=== PATIENT | male | born 1990 | race Caucasian/White ===

== ENCOUNTER 2020-06-01 17:55 | Emergency (ER) | payer OTHER, SELFPAY ==
--- NOTE | 2020-06-01 18:02 | ED.URI ---
HPI - URI/Sore Throat General Chief Complaint: Upper Respiratory Infection Stated Complaint: sore throat Time Seen by Provider: 06/01/20 18:02 Source: patient and RN notes reviewed History of Present Illness HPI Narrative: Patient is a 30-year-old male who presents the urgent care with complaints of a sore throat that started this morning. Patient states that he is already started to feel better this afternoon and rates his pain a 1 out of 10. Patient denies any other upper respiratory symptoms. Denies fever, cough, nausea, vomiting, body aches. Patient has not taken anything [id number] for his symptoms. No other acute complaints. No acute distress noted. Patient read the plan of care. Related Data Home Medications Medication Instructions Recorded Confirmed No Home Medications 06/01/20 06/01/20 Allergies Allergy/AdvReac Type Severity Reaction Status Date / Time No Known Allergies Allergy Mild Verified 06/01/20 18:11 Review of Systems Review of Systems: Narrative: CONSTITUTIONAL: Denies fever, chills, or sweats. EYES: Denies visual changes, redness, or discharge. ENT: Reports of sore throat CARDIOVASCULAR: Denies chest pain, palpitations, or edema. RESPIRATORY: Denies cough or dyspnea. GASTROINTESTINAL: Denies abdominal pain, nausea, vomiting, or diarrhea. GENITOURINARY: Denies dysuria or hematuria. SKIN: Denies rash or itching. MUSCULOSKELETAL: Denies back pain, joint pain, or myalgia. NEUROLOGIC: Denies headache, numbness, or weakness. All other systems reviewed are negative, except as documented in HPI. PMFSH Comments At the time of my signature, I reviewed and agree with the nursing past medical, surgical, social, and family history. There is no relevant family history pertinent to the patient complaint. Exam Narrative: Exam Narrative: GENERAL: This is a well-nourished, well-developed patient, in no apparent distress. HEAD: normocephalic, atraumatic. EYES: PERRL. Sclera clear/white. Vision is grossly intact. EARS: External ears normal, auditory canals clear and without drainage, TMs normal without perforation. Hearing grossly intact. NOSE: External nose normal with no obvious nasal discharge, nares without redness, no rhinorrhea. THROAT: Mucous membranes moist, posterior pharynx clear. Mild postnasal drainage NECK: Neck supple CARDIOVASCULAR: Regular rate and rhythm without murmurs, gallops, or rubs. RESPIRATORY: Clear to auscultation. Breath sounds equal bilaterally. No wheezes, rales, or rhonchi. SKIN: warm, intact with no suspicious lesions or rash, good texture and turgor. NEURO: awake, alert, and oriented to person, place and time. There were no obvious focal neurologic abnormalities. EXTREMITIES: No clubbing, cyanosis, or edema. N Course Vital Signs Vital signs: Vital Signs Temperature 97.9 F 06/01/20 18:04 Pulse Rate 66 06/01/20 18:04 Respiratory Rate 14 06/01/20 18:04 Blood Pressure 127/77 06/01/20 18:04 Pulse Oximetry 100 06/01/20 18:04 Temperature 97.9 F 06/01/20 18:04 Pulse Rate 66 06/01/20 18:04 Respiratory Rate 14 06/01/20 18:04 Blood Pressure 127/77 06/01/20 18:04 Pulse Oximetry 100 06/01/20 18:04 Reviewed MDM - URI/Sore Throat MDM Narrative Medical decision making narrative: Reviewed lab results with the patient. He is aware that strep swab was negative. Educated patient on culture we will call within 72 hours if culture is positive and antibiotics are necessary. Advised the patient to use throat spray and Flonase nasal spray for symptom relief. May use Tylenol/ibuprofen as needed. If symptoms persist or you develop a fever, cough, body aches, nausea, vomiting?follow-up with your provider for possible rule out for coronavirus. Follow-up with your PCP within 2 to 5 days or for worsening symptoms or failure to improve. Differential Diagnosis Differential diagnosis: Likely upper respiratory infection, otitis media, sinusitis, viral infection, br
[2020-06-01 18:04] VITALS: BP 127/77; PULSE 66; RESP 14; TEMP 36.6; O2SAT 100
== END 2020-06-01 18:28 | disposition home or self-care (01) ==
PROVIDERS: Emergency Provider Nurse Practitioner Family
DX: J02.9 Acute pharyngitis, unspecified (principal)
CPT/HCPCS: 87081; 87880; 99203; G0463

== ENCOUNTER 2022-02-17 18:19 | Emergency (ER) | payer OTHER, SELFPAY ==
[2022-02-17 18:25] VITALS: BP 148/64; PULSE 77; RESP 20; TEMP 36.9; O2SAT 100
--- NOTE | 2022-02-17 19:24 | ED.WOUNDLAC ---
HPI - Wound/Laceration General Chief Complaint: Wound/Laceration Stated Complaint: lac on forehead Time Seen by Provider: 02/17/22 19:13 Source: patient and RN notes reviewed Mode of arrival: ambulatory Limitations: no limitations History of Present Illness HPI narrative: Patient presents today with a laceration to his forehead that was sustained 3 days ago when he was hit in the forehead with a drill. He applied some butterfly bandages and some glue at that time to close his wound. States he produces a lot of oil in his forehead and has been sweating and the glue and butterfly bandages have fallen off. He has replaced the butterfly bandage, but has come into urgent care today requesting that sutures to be placed to repair the laceration. You up-to-date on his tetanus vaccine. Related Data Home Medications Medication Instructions Recorded Confirmed No Home Medications 06/01/20 02/17/22 Allergies Allergy/AdvReac Type Severity Reaction Status Date / Time No Known Allergies Allergy Mild Verified 02/17/22 18:39 Review of Systems Review of Systems: CONSTITUTIONAL: Denies body aches, fever, chills, or sweats. EYES: Denies visual changes, redness, or discharge. ENT: Denies rhinorrhea, congestion, sore throat, or otalgia. CARDIOVASCULAR: Denies chest pain, palpitations, or edema. RESPIRATORY: Denies cough or dyspnea. GASTROINTESTINAL: Denies abdominal pain, nausea, vomiting, or diarrhea. GENITOURINARY: Denies dysuria or hematuria. SKIN: Denies rash, itching. + Forehead laceration MUSCULOSKELETAL: Denies back pain, joint pain, or myalgia. NEUROLOGIC: Denies headache, numbness, tingling, or weakness. PSYCH: Denies depression or anxiety. PMFSH Comments At time of signature, I have reviewed and agree with nursing past medical, surgical, social and family history unless otherwise noted. Please see nursing chart for further information. There is no relevant family history pertinent to the presenting complaint Exam Narrative: GENERAL: Well-appearing, well-nourished, and in no acute distress. HEAD: Normocephalic, atraumatic. EYES: EOMI. No redness or drainage. Conjunctivae normal. ENT: Mucous membranes pink and moist. NECK: Normal AROM. CHEST: No respiratory distress. EXTREMITIES: Normal range of motion. No edema. SKIN: Warm, dry, no rash. Capillary refill normal. Normal skin turgor. 2 cm approximated laceration with [address] No erythema, edema, drainage noted. NEURO: No focal deficits. Alert and oriented x3. Gait steady. PSYCH: Normal affect. No signs of depression or anxiety. Course Course Emergency Course: Long discussion with patient regarding standard of care regarding reclosing old wounds. Butterfly bandages are secure and keeping wound approximated at this time. Level of Care: Express Care Visit Vital Signs Vital signs: Vital Signs Temperature 98.5 F 02/17/22 18:25 Pulse Rate 77 02/17/22 18:25 Respiratory Rate 20 02/17/22 18:25 Blood Pressure 148/64 H 02/17/22 18:25 Pulse Oximetry 100 02/17/22 18:25 Temperature 98.5 F 02/17/22 18:25 Pulse Rate 77 02/17/22 18:25 Respiratory Rate 20 02/17/22 18:25 Blood Pressure 148/64 H 02/17/22 18:25 Pulse Oximetry 100 02/17/22 18:25 Reviewed. Pt has been instructed to follow up with his PCP regarding his elevated blood pressure today. MDM - Wound/Laceration Differential Diagnosis Differential diagnosis: Likely laceration, avulsion of skin and other (Cellulitis, abscess) Critical Care Time Critical Care Time Critical Care Time: No Discharge Plan Discharge Clinical Impression: Forehead laceration Qualifiers: Encounter type: initial encounter Qualified Code(s): S01.81XA - Laceration without foreign body of other part of head, initial encounter Patient Disposition: Home, Self-Care Condition: Stable Instructions: Facial Laceration (ED) Additional Instructions: Continue to use your butterfly
== END 2022-02-17 19:30 | disposition home or self-care (01) ==
PROVIDERS: Emergency Provider Nurse Practitioner
DX: S01.81XA Laceration without foreign body of other part of head, initial encounter (principal); W29.8XXA Contact with other powered hand tools and household machinery, initial encounter
CPT/HCPCS: 99211; G0463

== ENCOUNTER 2022-04-01 11:05 | Emergency (ER) | payer OTHER, SELFPAY ==
[2022-04-01 11:13] VITALS: BP 131/62; PULSE 71; RESP 16; TEMP 36.8; O2SAT 100
--- NOTE | 2022-04-01 11:53 | ED.URI ---
HPI - URI/Sore Throat General Chief Complaint: Upper Respiratory Infection Stated Complaint: Sore Throat Time Seen by Provider: 04/01/22 11:54 Source: patient, RN notes reviewed and old records reviewed Mode of arrival: ambulatory Limitations: no limitations History of Present Illness HPI Narrative: 31 year old male who presents to [facility] care with complaints of sore throat for the past 1 1/2 days and he noted a cough this morning with yellow phlegm. Patient also states that he is concerned about strep reports that his daughter was diagnosed about a week ago with strep throat Patient reports that he has not had any fevers, chills or sweats, denies any shortness of breath or any chest pain.Patient reports that he has been taking OTC allergy medication.Patient states his throat is scratchy, rates his discomfort 6/10 and states pain with swallowing. MD elicited complaint: cough and sore throat Onset (ago): day(s) (1 1/2 days) Pain scale (0-10): 6 Description of mucous: yellow Exacerbating factors: swallowing Treatments prior to arrival: other (allergy med) Related Data Home Medications Medication Instructions Recorded Confirmed loratadine [Claritin] 10 mg PO DAILY 04/01/22 04/01/22 Allergies Allergy/AdvReac Type Severity Reaction Status Date / Time No Known Allergies Allergy Mild Verified 02/17/22 18:39 Review of Systems Review of Systems: CONSTITUTIONAL: Denies fever, chills, or sweats. EYES: Denies visual changes, redness, or discharge. ENT: Denies rhinorrhea, congestion,positive for sore throat, no otalgia. CARDIOVASCULAR: Denies chest pain, palpitations, or edema. RESPIRATORY: Positive for cough denies dyspnea. GASTROINTESTINAL: Denies abdominal pain, nausea, vomiting, or diarrhea. GENITOURINARY: Denies dysuria or hematuria. SKIN: Denies rash or itching. MUSCULOSKELETAL: Denies back pain, joint pain, or myalgia. NEUROLOGIC: Denies headache, numbness, or weakness. PSYCHIATRIC: Positive for anxiety or depression. All systems reviewed & are unremarkable except as noted in HPI and below PMFSH Past Medical History Medical History (Updated 04/02/22 @ 09:50 by Dede Wang NP) Anxiety and depression Seasonal allergies Surgical History Surgical History (Updated 04/02/22 @ 09:50 by Dede Wang NP) No history of previous surgery Social History Social History (Updated 04/02/22 @ 09:51 by Dede Wang NP) Smoking status: Former smoker Tobacco type: cigarettes Alcohol intake: unknown Substance use: unknown Living arrangements: with family Gender identity (if verbalized by the patient): Male Comments At time of signature, agree with nursing past medical, surgical, social and family history. There is no relevant family history pertinent to the presenting complaint Exam Narrative: GENERAL: Well-appearing, well-nourished, and in no acute distress. HEAD: Normocephalic, atraumatic. EYES: PERRLA and EOMI. ENT: Nares clear, no rhinorrhea or epistaxis. Mucous membranes moist.TM's normal with good light reflex, throat with redness, no lesions or exudates or tonsil swelling NECK: Supple.no lymphadenopathy CHEST: Clear to auscultation. No respiratory distress. cough SAO2 100% on room air HEART: Regular rate and rhythm. No murmur heard. Normal peripheral pulses. ABDOMEN: Soft, nontender, nondistended, normal active bowel sounds. EXTREMITIES: Normal range of motion. No edema. SKIN: Warm, dry, no rash. NEURO: No focal deficits. Alert and oriented x3. Course Course Level of Care: Express Care Visit Vital Signs Vital signs: Vital Signs Temperature 36.8 C 04/01/22 11:13 Pulse Rate 71 04/01/22 11:13 Respiratory Rate 16 04/01/22 11:13 Blood Pressure 131/62 04/01/22 11:13 Pulse Oximetry 100 04/01/22 11:13 Temperature 36.8 C 04/01/22 11:13 Pulse Rate 71 04/01/22 11:13 Respiratory Rate 16 04/01/22 11:13 Blood Pressure 131/62 04/01/22 11:13 Pulse Oximetry 100
== END 2022-04-01 12:20 | disposition home or self-care (01) ==
PROVIDERS: Emergency Provider Registered Nurse
DX: J06.9 Acute upper respiratory infection, unspecified (principal); J02.9 Acute pharyngitis, unspecified; Z87.891 Personal history of nicotine dependence
CPT/HCPCS: 87081; 87880; 99213; G0463